=== PATIENT | female | born 1970 | race Caucasian/White ===

== ENCOUNTER → 2024-10-30 09:37 | Outpatient (REF) | payer OTHER, SELFPAY | LOC: RAD 09:37 | PROVIDERS: ATTENDING PHYSICIAN Internal Medicine; FAMILY PHYSICIAN Internal Medicine; REFERRING PHYSICIAN Obstetrics & Gynecology | DX: R35.0 Frequency of micturition (principal); R80.9 Proteinuria, unspecified; N93.8 Other specified abnormal uterine and vaginal bleeding | CPT/HCPCS: 76770; 76830; 76856 ==